=== PATIENT | female | born 1995 | race African-American/Black ===

== ENCOUNTER 2023-03-24 11:47 | Emergency (ER) | payer OTHER ==
[2023-03-24 12:29] VITALS: BP 119/69; PULSE 95; RESP 18; TEMP 98.9; BMI 25.8
[2023-03-24 14:05] LABS: EPI CELLS 22 /uL (0-25.1); HYALINE CASTS 0 /uL (0-3.1); PH,URINE 5.5 (5.0-8.0); URINE APPEARANCE CLEAR; URINE BACTERIA 240 /uL (0-1359); URINE BILIRUBIN NEGATIVE (NEGATIVE); URINE COLOR YELLOW; URINE GLUCOSE (UA) NEGATIVE (NEGATIVE); URINE KETONE NEGATIVE (NEGATIVE); URINE LEUK ESTERASE NEGATIVE (NEGATIVE); URINE NITRITE NEGATIVE (NEGATIVE); URINE PROTEIN NEGATIVE (NEGATIVE); URINE RBC 9 /uL (0-23.9); URINE UROBILINOGEN 0.2 mg/dL (0.2-1.0); URINE WBC 14 /uL (0-25.8)
[2023-03-24 14:07] LABS: HCG,QUALITATIVE URINE Negative
== END 2023-03-24 14:50 | disposition home or self-care (01) ==
LOC: JERFT 11:47
DX: N93.9 Abnormal uterine and vaginal bleeding, unspecified (principal); R11.0 Nausea
CPT/HCPCS: 81003; 84703; 87086; 99283-25

== ENCOUNTER 2023-04-01 23:32 | Emergency (ER) | payer SELFPAY ==
[2023-04-01 23:49] VITALS: BP 107/71; PULSE 73; TEMP 98; BMI 26.7
[2023-04-02 01:44] LABS: EPI CELLS >36 /uL (0-25.1); HCG,QUALITATIVE URINE Negative; HYALINE CASTS 6 /uL (0-3.1); URINE APPEARANCE TURBID; URINE BILIRUBIN 1+ (NEGATIVE); URINE COLOR RED; URINE GLUCOSE (UA) NEGATIVE (NEGATIVE); URINE KETONE NEGATIVE (NEGATIVE); URINE LEUK ESTERASE 2+ (NEGATIVE); URINE NITRITE POSITIVE (NEGATIVE); URINE PROTEIN 2+ (NEGATIVE); URINE UROBILINOGEN 0.2 mg/dL (0.2-1.0); URINE WBC 189 /uL (0-25.8)
[2023-04-02 01:51] LABS: BASO % 0.7 % (0-2.0); EOS % 6.1 % (0-4.5); HEMOGLOBIN 12.8 GM/dL (10.7-15.3); LYMPH % 30.4 % (8-40); MCH 29.6 pg (25.7-33.7); MCHC 32.9 g/dl (32.0-36.0); MEAN CELL VOLUME 89.9 fl (80-96); MEAN PLT VOLUME 9.4 fl (7.5-11.1); MONO % 6.2 % (3.8-10.2); NEUT % 56.6 % (42.8-82.8); PLATELET COUNT 235 10^3/uL (134-434); RBC 4.34 M/mm3 (3.60-5.2); RDW 14.4 % (11.6-15.6)
[2023-04-02 02:10] LABS: POTASSIUM 3.9 mmol/L (3.5-5.1)
[2023-04-02 02:12] LABS: ALBUMIN 3.8 g/dl (3.4-5.0); CALCIUM 9.2 mg/dL (8.5-10.1)
[2023-04-02] MEDS ORDERED: NITROFURANTOIN MACROCRYSTAL 50 MG CAPSULE (FP) PO SCH (02:15)
[2023-04-02 02:17] LABS: TOT PROT 7.6 g/dl (6.4-8.2)
[2023-04-02 02:26] LABS: BILIRUBIN,TOTAL 0.2 mg/dL (0.2-1); BLOOD UREA NITROGEN 20.3 mg/dL (7-18)
[2023-04-02] MEDS ORDERED: NITROFURANTOIN MACROCRYSTAL 50 MG CAPSULE (FP) ONE (02:40)
[2023-04-02 03:12] VITALS: RESP 16
[2023-04-02 09:30] LABS: URINE RBC 43516.5 /uL (0-23.9); YEAST NEGATIVE (NEGATIVE)
== END 2023-04-02 02:54 | disposition home or self-care (01) ==
LOC: JER 23:32
DX: N93.9 Abnormal uterine and vaginal bleeding, unspecified (principal); N39.0 Urinary tract infection, site not specified
CPT/HCPCS: 36415; 76830-TC; 80053; 81003; 84703; 85025; 86850; 86900; 86901; 87086; 99284-25